=== PATIENT | female | born 2000 | race Caucasian/White ===

== ENCOUNTER 2022-03-05 16:47 | Emergency (ER) | payer OTHER ==
[2022-03-05] MEDS ORDERED: ONDANSETRON 4 MG/2 ML VIAL ONE (17:21)
[2022-03-05] MEDS ORDERED: FAMOTIDINE 20 MG/2 ML VIAL IV ONE (17:21)
[2022-03-05] MEDS ORDERED: DICYCLOMINE HCL 20 MG/2 ML AMP IM ONE (17:21)
[2022-03-05] MEDS ORDERED: NA CHLORIDE 0.9% 1,000 ML ONE (17:21)
[2022-03-05 17:29] LABS: Urine Blood Negative (Negative); Urine Glucose Negative (Negative); Urine Protein 2+ (Negative); Urine Specific Gravity >=1.030 (1.005-1.030)
[2022-03-05 17:44] LABS: Absolute Lymphocytes (CBC) 1.9 K/uL (0.7-4.9); Hematocrit 34.9 % (36.0-45.0); Lymphocytes % 19.1 % (15.3-44.8); MCV 78.1 fL (80-100); MPV 9.5 fL (7.6-11.3); RBC Red Blood Cell Count 4.47 M/uL (3.86-4.86)
[2022-03-05 17:48] LABS: Urine Bacteria <20 /HPF (<20); Urine Mucus Slight /HPF (None Seen)
[2022-03-05 17:55] LABS: Albumin 3.8 g/dL (3.4-5.0); Bilirubin Total 0.6 mg/dL (0.2-1.0); Potassium 3.4 mmol/L (3.5-5.1); Protein, Total 7.8 g/dL (6.4-8.2)
--- NOTE | 2022-03-05 19:11 | RAD REPORT ---
EXAM DESCRIPTION: US - Abdomen Exam Limited - 03/05/2022 6:53 pm CLINICAL HISTORY: Abdominal pain. COMPARISON: None. FINDINGS: The gallbladder wall is not thickened. Multiple gallstones The biliary tree is normal caliber. IMPRESSION: Cholelithiasis without evidence of cholecystitis
--- NOTE | 2022-03-05 19:45 | ER ---
Nurse's Notes [facility] Name: Blanca Red Age: 21 yrs Sex: Female : 2000 Arrival Date: 03/05/2022 Time: 16:48 Bed 26 Private MD: Diagnosis: Other cholelithiasis without obstruction Presentation: 03/05 17:02 Chief complaint: Patient states: upper abd pain started about 30 minutes ago, has had iw episodes of abd pain since given on Jan 24, pt gave at 6 months along, baby did not survive , denies n/v/d denies vaginal bleeding , also feels like she can't get a good breath in due to the pain. Coronavirus screen: Client presents with at least one sign or symptom that may indicate coronavirus-19. Ebola Screen: Patient negative for fever greater than or equal to 101.5 degrees Fahrenheit, and additional compatible Ebola Virus Disease symptoms Patient denies exposure to infectious person. Patient denies travel to an Ebola-affected area in the 21 days before illness onset. No symptoms or risks identified at this time. Initial Sepsis Screen: Does the patient meet any 2 criteria? No. Patient's initial sepsis screen is negative. Does the patient have a suspected source of infection? No. Patient's initial sepsis screen is negative. Risk Assessment: Do you want to hurt yourself or someone else? Patient reports no desire to harm self or others. Onset of symptoms was March 05, 2022. 17:02 Method Of Arrival: Ambulatory iw 17:02 Acuity: MARY 3 iw Historical: - Allergies: 17:05 No Known Allergies; iw - Home Meds: 17:05 None [Active]; iw - PMHx: 17:05 None; iw - PSHx: 17:05 None; iw - Immunization history:: Adult Immunizations up to date, Client reports having NOT received the Covid vaccine. - Social history:: Smoking status: Patient denies any tobacco usage or history of. Screenin:35 Abuse screen: Denies threats or abuse. Nutritional screening: No deficits noted. bm7 Tuberculosis screening: No symptoms or risk factors identified. Fall Risk None identified. Assessment: 17:35 Reassessment: Patient and/or family updated on plan of care and expected duration. Pain bm7 level reassessed. Patient is alert, oriented x 3, equal unlabored respirations, skin warm/dry/pink. General: Appears in no apparent distress. uncomfortable, Behavior is calm, cooperative. Pain: Complains of pain in abdomen. Neuro: No deficits noted. Cardiovascular: No deficits noted. Respiratory: No deficits noted. GI: Bowel sounds present X 4 quads. Abd is soft X 4 quads Abdomen is tender to palpation in right lower quadrant and left lower quadrant. : No deficits noted. No signs and/or symptoms were reported regarding the genitourinary system. Denies vaginal bleeding. EENT: No deficits noted. No signs and/or symptoms were reported regarding the EENT system. Derm: No deficits noted. No signs and/or symptoms reported regarding the dermatologic system. Musculoskeletal: No deficits noted. No signs and/or symptoms reported regarding the musculoskeletal system. 18:26 Reassessment: Patient and/or family updated on plan of care and expected duration. Pain bm7 level reassessed. Patient is alert, oriented x 3, equal unlabored respirations, skin warm/dry/pink. Ultrasound at bedside. 19:03 Reassessment: Patient and/or family updated on plan of care and expected duration. Pain bm7 level reassessed. Patient is alert, oriented x 3, equal unlabored respirations, skin warm/dry/pink. Vital Signs: 17:02 BP 120 / 88; Pulse 101; Resp 18; Temp 98.4; Pulse Ox 99% on R/A; Weight 100.24 kg; iw Height 5 ft. 3 in. (160.02 cm); Pain 7/10; 18:26 BP 124 / 80; Pulse 80; Resp 16; Temp 98.9(TE); Pulse Ox 100% ; bm7 17:02 Body Mass Index 39.15 (100.24 kg, 160.02 cm) iw ED Course: 16:48 Patient arrived in ED. am2 16:49 Asaf Patrick PA is PHCP. cp 16:49 Asaf Jewell MD is Attending Physician. cp 17:05 Randi Espinoza, RN is Primary Nurse. bm7 17:05 Triage completed. iw 17:05 Arm band placed on. iw 17:35 No apparent distress. Resting quietly. Awaiting lab results. bm7 17:35 Patient has correct armband on for positive identification. Placed in gown. Bed in low bm7 position. Call light in reach. Client placed on continuous cardiac and pulse oximetry monitoring. NIBP monitoring applied. Warm blanket given. 17:35 No provider procedures requiring assistance completed. Initial lab(s) drawn, by me, bm7 sent to lab. Urine collected: clean catch specimen, clear. Inserted saline lock: 20 gauge in right antecubital area, using aseptic technique. Blood collected. Patient maintains SpO2 saturation greater than 95% on room air. 18:55 Abdomen Limited US: epigastric/RUQ pain In Process Unspecified. EDMS 19:45 Sanjeev Burdick MD is Referral Physician. cp 19:58 IV discontinued, intact, bleeding controlled, No redness/swelling at site. Pressure bm7 dressing applied. Administered Medications: 17:34 Drug: Pepcid (famotidine) 20 mg Route: IVP; Site: right antecubital; bm7 18:30 Follow up: Response: No adverse reaction bm7 17:34 Drug: Zofran (Ondansetron) 4 mg Route: IVP; Site: right antecubital; bm7 18:30 Follow up: Response: Nausea is decreased bm7 17:34 Drug: Bentyl (dicyclomine) 20 mg Route: IM; Site: right gluteus; bm7 18:29 Follow up: Response: No adverse reaction bm7 17:34 Drug: NS 0.9% 1000 ml Route: IV; Rate: 1 bolus; Site: right antecubital; bm7 19:58 Drug: Potassium Effervescent Tablet 25 mEq Route: PO; bm7 19:58 Follow up: Response: No adverse reaction bm7 Medication: 17:35 VIS not applicable for this client. bm7 Point of Care Testing: Urine : 17:35 hCG Reading: Negative; Control Reading: Positive; bm7 Outcome: 19:45 Discharge ordered by . cp 19:58 Discharged to home via ambulance, with family. bm7 19:58 Condition: good 19:58 Discharge instructions given to patient, family, Instructed on discharge instructions, follow up and referral plans. medication usage, Demonstrated understanding of instructions, follow-up care, medications, Prescriptions given X 3. 19:59 Patient left the ED. bm7 Signatures: Dispatcher [employer] EDMS Bree Pfeiffer RN RN iw Asaf Patrick PA PA cp Moreno, Amanda am2 Randi Espinoza, RN RN bm7
--- NOTE | 2022-03-05 19:45 | EDPHYS ---
Physician Documentation [facility] Name: Blanca Red Age: 21 yrs Sex: Female : 2000 Arrival Date: 03/05/2022 Time: 16:48 Bed 26 Private MD: ASMITA Physician Asaf Jewell HPI: 03/05 17:10 This 21 yrs old Female presents to ER via Ambulatory with complaints of Abdominal Pain cp - severe. 17:10 The patient presents with abdominal pain in the epigastric area. Onset: The cp symptoms/episode began/occurred suddenly, today. The symptoms do not radiate. Associated signs and symptoms: Pertinent positives: nausea, Pertinent negatives: chest pain, constipation, dysuria, fever, shortness of breath, vomiting. The symptoms are described as constant. Modifying factors: the symptoms are aggravated by breathing deeply. Severity of pain: in the emergency department the pain is unchanged despite home interventions. Historical: - Allergies: 17:05 No Known Allergies; iw - Home Meds: 17:05 None [Active]; iw - PMHx: 17:05 None; iw - PSHx: 17:05 None; iw - Immunization history:: Adult Immunizations up to date, Client reports having NOT received the Covid vaccine. - Social history:: Smoking status: Patient denies any tobacco usage or history of. ROS: 17:15 Constitutional: Negative for body aches, chills, fever, poor PO intake. cp 17:15 Eyes: Negative for injury, pain, redness, and discharge. cp 17:15 ENT: Negative for drainage from ear(s), ear pain, sore throat, difficulty swallowing, difficulty handling secretions. 17:15 Cardiovascular: Negative for chest pain, edema, palpitations. 17:15 Respiratory: Negative for cough, shortness of breath, wheezing. 17:15 Abdomen/GI: Positive for abdominal pain, nausea, of the epigastric area, Negative for vomiting, diarrhea, constipation. 17:15 Back: Negative for radiated pain. 17:15 : Negative for urinary symptoms. 17:15 Neuro: Negative for altered mental status, headache, weakness. 17:15 All other systems are negative. Exam: 17:20 Constitutional: The patient appears in no acute distress, alert, awake, non-toxic, well cp developed, well nourished, obese. 17:20 Head/Face: Normocephalic, atraumatic. cp 17:20 Eyes: Periorbital structures: appear normal, Conjunctiva: normal, no exudate, no injection, Sclera: no appreciated abnormality, Lids and lashes: appear normal, bilaterally. 17:20 ENT: External ear(s): are unremarkable, Nose: is normal, Mouth: Lips: moist, Oral mucosa: pink and intact, moist, Posterior pharynx: Airway: no evidence of obstruction, patent. 17:20 Chest/axilla: Inspection: normal. 17:20 Cardiovascular: Rate: normal, Rhythm: regular. 17:20 Respiratory: the patient does not display signs of respiratory distress, Respirations: normal, no use of accessory muscles, no retractions, labored breathing, is not present, Breath sounds: are clear throughout, no decreased breath sounds, no stridor, no wheezing. 17:20 Abdomen/GI: Inspection: abdomen appears normal, Bowel sounds: active, all quadrants, Palpation: soft, in all quadrants, moderate abdominal tenderness, in the epigastric area, rebound tenderness, is not appreciated, involuntary guarding, is not appreciated. 17:20 Back: CVA tenderness, is absent. 17:20 Neuro: Orientation: to person, place \T\ time. Mentation: is normal. Vital Signs: 17:02 BP 120 / 88; Pulse 101; Resp 18; Temp 98.4; Pulse Ox 99% on R/A; Weight 100.24 kg; iw Height 5 ft. 3 in. (160.02 cm); Pain 7/10; 18:26 BP 124 / 80; Pulse 80; Resp 16; Temp 98.9(TE); Pulse Ox 100% ; bm7 17:02 Body Mass Index 39.15 (100.24 kg, 160.02 cm) iw MDM: 16:56 Patient medically screened. jose 17:30 Differential diagnosis: cholecystitis, Cholelithiasis, gastritis, non-specific abd cp pain, pancreatitis, Peptic Ulcer Disease, Perf. Duodenal Ulcer, Perf. Gastric Ulcer, urinary tract infection. 19:43 Data reviewed: vital signs, nurses notes, lab test result(s), radiologic studies, cp ultrasound. Counseling: I had a detailed discussion with the patient and/or guardian regarding: the historical points, exam findings, and any diagnostic results supporting the discharge/admit diagnosis, lab results, radiology results, to return to the emergency department if symptoms worsen or persist or if there are any questions or concerns that arise at home. ED course: Patient reports pain resolved at this time. Will discharge to home for continued monitoring. 03/05 17:07 Order name: CBC with Diff; Complete Time: 17:57 cp / 17:57 Interpretation: Normal except: HGB 11.7; HCT 34.9; MCV 78.1; MCH 26.3; AURORA% 74.0. / 17:07 Order name: CMP; Complete Time: 17:57 cp /12 17:58 Interpretation: Abnormal: K 3.4; AST 140; ALT 150; GLOB 4.0; A/G 1.0. / 17:07 Order name: Lipase; Complete Time: 17:57 cp 09/12 17:58 Interpretation: Within normal limits: LIP 152. / 17:07 Order name: Urine Microscopic Only; Complete Time: 17:57 cp / 17:57 Interpretation: Normal except: URBC 5-10. / 17:30 Order name: Urine Dipstick-Ancillary; Complete Time: 17:57 EDMS 09/ 17:57 Interpretation: Normal except: UPROT 2+. / 17:07 Order name: Abdomen Limited US: epigastric/RUQ pain; Complete Time: 19:40 09/12 19:40 Interpretation: Report reviewed. / 17:07 Order name: IV Saline Lock; Complete Time: 17:09 cp 03/05 17:07 Order name: Labs collected and sent; Complete Time: 17:09 cp 03/05 17:07 Order name: Urine Dipstick-Ancillary (obtain specimen); Complete Time: 17:34 cp /12 17:07 Order name: Urine Test (obtain specimen); Complete Time: 17:34 cp / 17:07 Order name: NPO; Complete Time: 17:09 cp Administered Medications: 17:34 Drug: Pepcid (famotidine) 20 mg Route: IVP; Site: right antecubital; bm7 18:30 Follow up: Response: No adverse reaction bm7 17:34 Drug: Zofran (Ondansetron) 4 mg Route: IVP; Site: right antecubital; bm7 18:30 Follow up: Response: Nausea is decreased bm7 17:34 Drug: Bentyl (dicyclomine) 20 mg Route: IM; Site: right gluteus; bm7 18:29 Follow up: Response: No adverse reaction bm7 17:34 Drug: NS 0.9% 1000 ml Route: IV; Rate: 1 bolus; Site: right antecubital; bm7 19:58 Drug: Potassium Effervescent Tablet 25 mEq Route: PO; bm7 19:58 Follow up: Response: No adverse reaction bm7 Point of Care Testing: Urine : 17:35 hCG Reading: Negative; Control Reading: Positive; bm7 Disposition Summary: 03/05/22 19:45 Discharge Ordered Location: Home cp Problem: new cp Symptoms: have improved cp Condition: Stable cp Diagnosis - Other cholelithiasis without obstruction cp Followup: cp - With: Sanjeev Burdick MD - When: 2 - 3 days - Reason: Recheck today's complaints Discharge Instructions: - Discharge Summary Sheet cp - Cholelithiasis cp Forms: - Medication Reconciliation Form cp - Thank You Letter cp - Antibiotic Education cp - Prescription Opioid Use cp Prescriptions: - Zofran 4 mg Oral Tablet - take 1 tablet by ORAL route every 12 hours As needed; 20 tablet; Refills: 0, cp Product Selection Permitted - dicyclomine 20 mg Oral Tablet - take 1 tablet by ORAL route 4 times per day; 30 tablet; Refills: 0, Product cp Selection Permitted - Pepcid 20 mg Oral Tablet - take 1 tablet by ORAL route every 12 hours for 10 days; 20 tablet; Refills: 0, cp Product Selection Permitted Signatures: Dispatcher [employer] EDAsaf Mon MD MD cha Williams, Irene, RN RN iw Page, Corey, PA PA cp Randi Espinoza, NAVID RN bm7 Corrections: (The following items were deleted from the chart) 17:58 17:57 Abnormal: K 3.4. cp cp
[2022-03-05] MEDS ORDERED: POTASSIUM 25 MEQ EFFERV TAB ONE (20:01)
[2022-03-05 21:51] VITALS: BP 124/80; TEMP 98.9; O2SAT 100
== END 2022-03-05 19:59 | disposition home or self-care (01) ==
LOC: ER 16:47
DX: K80.80 Other cholelithiasis without obstruction (principal)
CPT/HCPCS: 85025; 36415; 83690; 80053; 76705; 96375; 96372; 96374; 99284; J0500; J7030; J2405; 81003; 81015

== ENCOUNTER 2022-03-14 17:52 | Emergency (ER) | payer OTHER ==
--- OUTSIDE RECORDS SUMMARY | 2022-03-14 17:55 | XMS REPORT | Continuity of Care Document ---
:2000 Author Organization [facility] t Address [address] [place] [address] Care Team Providers Name Role Phone PCP, PATIENT DOES NOT HAVE A Primary Care Physician Unavaila RAMONE Greco Attending Clinician Unavailable Ramone Bueno MD Attending Clinician Shekhar Portillo Attending Clinician Unavailable RAMONE BUENO Admitting Clinician Unavailable Shekhar Portillo Admitting Clinician Unavailable Payers Payer Name Policy Type Policy Number Effective Date Expiration Date Shima whitney [facility] [id number] 2022 00:00:00 Problems Condition Condition Condition Status Onset Resolution Last Treating Co mments Source Name Details Category Date Date Treatment Clinician Date Calculus Calculus Disease Active Overview: Un nura of of 03-14 Formattin ity of madhavi hendrickson 00:00: g of this [place] r without r without 00 note Medi kaveh cholecysti cholecysti might be Branch tis tis different without without from the obstructio obstructio original. n n Added automatic ally from request for surgery [id number] Allergies, Adverse Reactions, Alerts Allergy Allergy Status Severity Reaction(s) Onset Inactive Treating Comm ents Source Name Type Date Date Clinician No Known DA Active U [facility] 01-24 Allergie 00:00: s 00 No Known DA Active U [facility] 01-23 Allergie 00:00: s 00 NO KNOWN Drug Active Univers ALLERGIE Class ity of S [facility] Social History Social Habit Start Date Stop Date Quantity Comments Source Alcohol intake 2022-03-14 2022-03-14 Lifetime University of 00:00:00 00:00:00 non-drinker [facility] (finding) Branch Exposure to 2022-03-02 2022-03-12 Not sure University SARS-CoV-2 00:00:00 08:32:00 [facility] (event) Branch Tobacco use and 2022-03-12 2022-03-12 Smokeless tobacco Un iversity of exposure 00:00:00 00:00:[address] [facility] Sex Assigned At [birth year] Universit y of 00:00:00 00:00:00 [facility] Smoking Status Start Date Stop Date Source Never smoked tobacco [facility] Medications Ordered Filled Start Stop Current Ordering Indication Dosage Frequency Signature Comments Components Source Medication Medication Date Date Medication? Clinician (SIG) Name Name famotidine 0 Yes 20mg Take 20 mg U nivers 20 mg 9-19 by mouth 2 ity of tablet 08:40: (two) [place] 15 times Medical daily as Branch needed. dicyclomine 2021-0 Yes 20mg Take 20 mg Univers 20 mg 9-19 by mouth 4 ity of tablet 08:40: (four) [place] 15 times Medical daily. Branch famotidine 2021-0 Yes 20mg Take 20 mg U nivers 20 mg 9-19 by mouth 2 ity of tablet 08:40: (two) [place] 15 times Medical daily as Branch needed. dicyclomine 2-0 Yes 20mg Take 20 mg Univers 20 mg 9-19 by mouth 4 ity of tablet 08:40: (four) [place] 15 times Medical daily. Branch DICYCLOMINE 2021-0 No HYDROCHLORI 9-13 DE 20 MG 00:00: TABS 00 TAKE 1 2021-0 No TABLET BY 9-13 MOUTH EVERY 00:00: 12 HOURS 00 FOR 10 DAYS FUENTES PAGE Vital Signs Vital Name Observation Time Observation Value Comments Source Systolic blood 2022-03-12 13:36:00 118 mm[Hg] Univer sity of pressure [facility] Diastolic blood 2022-03-12 13:36:00 77 mm[Hg] Unive rsity of pressure [facility] Heart rate 2022-03-12 13:36:00 98 /min [facility] Body temperature 2022-03-12 13:36:00 37.11 Val [facility] Respiratory rate 2022-03-12 13:36:00 18 /min [facility] Body height 2022-03-12 13:36:00 160 cm [facility] Body weight 2022-03-12 13:36:00 102.513 kg [facility] BMI 2022-03-12 13:36:00 40.03 kg/m2 [facility] Heart Rate 2022-03-06 17:08:00 96.00 /min Respiratory Rate 2022-03-06 17:08:00 21.00 /min BP Systolic 2022-03-06 17:08:00 111 mm[Hg] BP Diastolic 2022-03-06 17:08:00 65 mm[Hg] Weight Measured 2022-03-06 17:08:00 225.80 pounds Height Measured 2022-03-06 17:08:00 63.00 inches Body Temperature 2022-03-06 17:08:00 97.70 degrees Procedures This patient has no known procedures. Plan of Care Planned Activity Planned Date Details Comments Source Goal Plan of Care Note [code = 21501-8] Goal Plan of Care Note [code = 01442-8] Goal Plan of Care Note [code = 86971-9] Goal Plan of Care Note [code = 87834-2] Goal Plan of Care Note [code = 69278-3] Encounters Start End Encounter Admission Attending Care Care Encounter Source Date/Time Date/Time Type Type Clinicians Facility Department ID 2022-03-20 2022-03-20 Outpatient Ector BUENO [facility] JORDYN [id number] Univers 07:00:00 07:00:00 RAMONE [facility] 2022-03-17 2022-03-17 Outpatient [facility] [id number] Univers 08:30:00 08:30:00 [id number] [facility] 2022-03-12 2022-03-12 Outpatient Ector BUENO [facility] [id number] Univers 08:30:00 09:25:15 [facility] 2022-03-12 2022-03-12 Office [facility] [id number] [facility] [place] [place] 08:30:00 09:25:15 Visit [facility] [id number] [facility] [id number] Koko caceres [id number] [place] [address] Branch 2022-03-06 2022-03-06 Outpatient [id number] 00:00:00 00:00:00 Visit [id number] 2022-01-24 2022-01-25 Inpatient Urgent [facility] [id number] [facility] 02:34:00 13:30:00 [facility] 61 2022-01-24 2022-01-24 Inpatient Emergency Lindsey [facility] [id number] [facility] 02:34:00 01:41:00 [facility] 61 2022-01-23 2022-01-23 Outpatient Emergency BUBBA [facility] [id number] [facility] 06:45:00 09:19:00 [facility] 67 2022-01-23 2022-01-23 Outpatient [facility] [id number] [facility] 07:06:00 07:06:00 67 Results Test Description Test Time Test Comments Results Result Comments Source Thyroid Stimulating Hormone 2022-01-24 23:00:00 Test Item Value Reference Range Interpretation Comme nts Thyroid Stimulating Hormone (test code = TSH) 1.900 IU/mL 0.358-3. 74 N Comprehensive Metabolic [id number] 23:00:00 Test Item Value Reference Range Interpretation Comments SODIUM (test code = NA) 136 mmol/L 136-145 N Potassium,K (test code = K) 3.8 mmol/L 3.5-5.1 N Chloride (test code = CL) 106 mmol/L 98-107 N Carbon Dioxide (test code = 23 mmol/L 21-32 N CO2) Anion Gap (test code = GAP) 7 mmol/L 7-16 N Blood Urea Nitrogen (test code 7 mg/dL 7-18 N = BUN) Creatinine (test code = CREATT) 0.5 mg/dL 0.6-1.0 L Creatinine Clr Calc Pharmacy 203.36 mL/min (test code = CRCLPHA) Estimated GFR ( [place] > 60 mL/min/1.73m2 (test code = EGFRAA) Estimated GFR (Non Afr [place] > 60 mL/min/1.73m2 (test code = EGFRNAA) BUN/Creatinine Ratio (test code 14 = BCRATIO) Glucose (test code = GLU) 104 mg/dL 74-106 N Calcium (test code = CA) 8.8 mg/dL 8.5-10.1 N Bilirubin,Total (test code = 0.3 mg/dL 0.2-1.0 N BILIT) Aspartate Amino Transferase 8 IU/L 15-37 L (test code = AST) Alanine Aminotransferase (test 13 IU/L 12-78 N code = ALT) Total Protein (test code = TP) 6.0 g/dL 6.4-8.2 L Albumin Level (test code = ALB) 2.7 g/dL 3.4-5.0 L Globulin (test code = GLOB) 3 Albumin/Globulin Ratio (test 0.9 ratio 1.2-3.0 L code = AGRATIO) Alkaline Phosphatase (test code 58 IU/L 50-136 N = ALP) Thyroid Stimulating [id number] 23:00:00 Test Item Value Reference Range Interpretation Comments Thyroid Stimulating Hormone (test 1.860 IU/mL 0.358-3.74 N code = TSH) Hemoglobin [id number] 23:00:00 Test Item Value Reference Range Interpretation Comments Hemoglobin A1C (test code = HGBA1C.XX) 4.5 % 2.0-7.0 N LUPUS [id number] 23:00:00 Test Item Value Reference Range Interpretation Comments CLINICAL DERMATOLOGIST Antibodies (test 0.8 AI 0.0-0.9 code = LUPPRO.1) Tobias Antibodies (test <0.2 AI 0.0-0.9 code = LUPPRO.2) Anti-DNA (DS) Ab Qn 1 IU/mL 0-9 Negativ e <5 Equivocal (test code = LUPPRO.3) 5 - 9 Positive >9 LEONORA Direct (test code = Negative Negative Perf ormed at: [facility] - LUPPRO.4) [address] [id number] Di eliezer: Sumeet Murrell MD, Phone: [phone] Antithrombin [id number] 23:00:00 Test Item Value Reference Range Interpretation Comments Antithrombin 109 % 75-135 Direct Xa inhib itor Activity (test code anticoag ulants such as = AT3FUN.L) rivaroxaban,api xaban and edoxaban will l ead to spuriously elevatedantithr ombin activity levels possibly masking a deficiency.Perf ormed at: [facility] [id number], [place], [place] [id number] Director: Ruiz Zhang MD, Phone: [phone] CMV Abs IgG/[id number] 23:00:00 Test Item Value Reference Range Interpretation Comments Cytomegalovirus (CMV) <0.60 U/mL 0.00-0.59 Negat anita <0.60 Ab, IgG (test code = Equivoc al 0.60 - CMVABGM.1) 0.69 Positive > 0.69 Cytomegalovirus (CMV) <30.0 AU/mL 0.0-29.9 Negat anita <30.0 Ab, IgM (test code = Equivoc al 30.0 - CMVABGM.2) 34.9 Positive >34.9A positive result is gener ally indicative of acuteinfection, reactivation or persistent IgM production.Perf erlinda d at: [facility] [address] [id number] Director: Shayla Jara MD, Ph one: [phone] [id number] 23:00:00 Test Item Value Reference Range Interpretation Comments MTHFR, DNA TNP See_Comment Test not perfor med. No whole Analysis (test blood receive d.Notified Shadia code = MTHFR.1) Ilir at noejgnj44/07/20 22Additional Clinical Information:Hyp erhomocysteinemia is multifactori al involving genetic,clinica l, and environmental r isk factors. Reduced enzymea ctivity of methylenetetrah ydrofolate reductase (MTHF R) daly genetic risk factor for hyperhomocystei nemia,particularly when serum raoul te levels are low. There aretwo co mmon variants in the MTHFR gene that can decreaseenzyme activity; c.665C>T (p. Nuk386Tel), legacy ixcbB842H, and c.1286A>C ( p. Sth870Tyh), legacy name A12 98C.These variants do not independ ently increase risk ofconditio ns related to hyperhomocystei nemia in the absenceof eleva steven homocysteine levels. Measure ment of totalplasma donis ocysteine is recommended. Pa tients should sharetheir MTHF R genotype with physicians who are makingdecisions regarding chemotherapy tr eatments that depend onfolate , such as methotrexate.Gu idelines do not recommend genot yping of these two MTHFRvariants i n the evaluation of venous throm bosis orobstetric risk due to robertson ited evidence of clinical utilit y(PMID: 18912200). Comments:Geneti c Coordinators are available for [facility] careproviders t o discuss results at [phone] ID [phone]).Test Details:Variant s Analyzed: c.665C>T (p. Al t804Oxf), legacy name:C677T and c.1286A>C (p. Miz100Hxr), leg acy name: [id number]/L imitations:DNA analysis of the MTHFR gene was performed by PC Ramplification followed by res triction enzyme analysis. Thedi agnostic sensitivity is >99%. Results must be combinedwith clinical information for the most accurateinterpr etation. Molecular-based testing is highlyaccurate, but as in any laboratory test , diagnosticerrors may occur. Fals e positive or false negative resultsmay occur for reasons cristal t include genetic variants, blood transfusions, bone marrow transpla ntation, somatic ortissue-specif ic mosaicism, mislabeled samp les, or erroneousrepres entation of family relationships.T his test was developed and i ts performancechar acteristics determined by [facility] Parham. It has not beencleared or approved by the Food and Drug Administration. References:Glo SE, Nura AQUINO, T nathanael ZAVALETA. [facility] PracticeGuideli ne: lack of evidence for MT HFR polymorphism testing.Ary M ed. 2012;15(2):153-6 . doi: 10.1038/gim.201 2.165.Ep2012Jun 26. PMID: 23 217190.[employer]'C ommittee on Practice Bullet ins-Obstetrics. [facility] VickieBu kim No. 197: Inherited Throm bophilias in .Obste t Gynecol. 2018 Dec;132(1):e18- e34. doi:10.1097/AOG .[id number]. Erratum in: Obs tet Gynecol.2018 Mar;132(4):1069 . PMID: 35120120.Gricelda Buckley, PhD, Isabel almazan, PhDJosejaycee Uribe, PhD, F Shelby Perkins, PhD, Rasheeda Youssef, PhD, FACW Ammy Schultz, PhD, Kareem layne, PhD, Chago mahoney, PhD, [facility] [Automated mess age] The system which generated this result transmitted ref erence range: .. The reference r rina was not used to interpret th is result as normal/abnormal . Factor V [id number] 23:00:00 Test Item Value Reference Range Interpretation Comments Factor V Leiden TNP See_Comment no whole blo od rec'vd and Result (test code = patient dischargedTest not FVLEID.1) performed. No w hole blood received.Notifi ed Shadia Cordonoval at /07/20 22 [Automated message] The sy stem which generated this result transmitted ref erence range: .. The referenc e range was not used to int erpret this result as jairo l/abnormal. Interpretation: TNP See_Comment no whole blo od rec'vd and (test code = patient dischar ged FVLEID.2) [Automated mess age] The system which ge nerated this result transmit steven reference range: .. The r eference range was not u sed to interpret this result as normal/abnormal . Methodology: (test TNP See_Comment no whole blood rec'vd and code = FVLEID.3) patient dis charged [Automated mess age] The system which ge nerated this result transmit steven reference range: .. The r eference range was not u sed to interpret this result as normal/abnormal . Comments: (test code TNP See_Comment no whol e blood rec'vd and = FVLEID.4) patient dischar ged [Automated mess age] The system which ge nerated this result transmit steven reference range: .. The r eference range was not u sed to interpret this result as normal/abnormal . Parvovirus B19, Human, IgG/[id number] 23:00:00 Test Item Value Reference Range Interpretation Comments Parvovirus B19, IgG 5.9 index 0.0-0.8 A Negativ e <0.9 (test code = Equivocal 0.9 - 1.1 WMWH71ZW.1) Positive >1.1 Parvovirus B19, IgM 0.2 index 0.0-0.8 Negativ e <0.9 (test code = Equivocal 0.9 - 1.1 RZEX33DN.2) Positive >1.1Pe rformed at: [facility] [address] [id number] Di eliezer: Kanchan Jara MD, Phone: [phone] Toxoplasma Abs [id number] 23:00:00 Test Item Value Reference Range Interpretation Comments Toxoplasma gondii <3.0 IU/mL 0.0-7.1 Negative <7.2 Ab,IgG,Qn (test code Equivoc al 7.2 - 8.7 = TOXGM.1) Positive >8.7 Toxoplasma gondii <3.0 AU/mL 0.0-7.9 Negative <8.0 Ab,IgM,Qn (test code Equivoc al 8.0 - 9.9 = TOXGM.2) Positive >9.9 Comments (test code = Comment See_Comment No ser ological TOXGM.3) evidence of inf ection with Toxoplasma . Ifsymptoms pers ist, submit a new sp ecimen after three weeks.Performed at: [facility] [employer] [id number] Di eliezer: Kanchan Jara MD, Phone: [phone] [Automated mess age] The system [employer] generated this result transmitted ref erence range: .. The reference range was not used to int erpret this result as normal/abnormal . Antiphospholipid [id number] 23:00:00 Test Item Value Reference Interpretation Comments Range Specimen Status Comment See_Comment Reference la b report sent (test code = via fax. [Autom ated ANTIPHOSAB.1) message] The s ystem which generated this result transmitted ref erence range: .. The r eference range was not u sed to interpret this result as normal/abnormal . Cardiolipin IgM Negative See_Comment [Automated message] The (test code = system which ge nerated ANTIPHOSAB.2) this result tr ansmitted reference range : .. The reference range was not used to interpr et this result as jairo l/abnormal. Phosphatidyl Negative See_Comment [Automated mes eugenia] The Inositol IgM (test system [facility] generated code = ANTIPHOSAB.3) this re sult transmitted reference range : .. The reference range was not used to interpr et this result as jairo l/abnormal. Phosphatidyl Negative See_Comment [Automated mes eugenia] The Glycerol IgM (test system [facility] generated code = ANTIPHOSAB.4) this re sult transmitted reference range : .. The reference range was not used to interpr et this result as jairo l/abnormal. Phosphatidyl Serine Negative See_Comment [Automa steven message] The IgM (test code = system [facility] generated ANTIPHOSAB.5) this result tr ansmitted reference range : .. The reference range was not used to interpr et this result as jairo l/abnormal. Cardiolipin IgG Negative See_Comment [Automated message] The (test code = system which ge nerated ANTIPHOSAB.6) this result tr ansmitted reference range : .. The reference range was not used to interpr et this result as jairo l/abnormal. Phosphatidyl Negative See_Comment [Automated mes eugenia] The Inositol IgG (test system [facility] generated code = ANTIPHOSAB.7) this re sult transmitted reference range : .. The reference range was not used to interpr et this result as jairo l/abnormal. Phosphatidyl Negative See_Comment [Automated mes eugenia] The Glycerol IgG (test system [facility] generated code = ANTIPHOSAB.8) this re sult transmitted reference range : .. The reference range was not used to interpr et this result as jairo l/abnormal. Phosphatidyl Serine Negative See_Comment [Automa steven message] The IgG (test code = system [facility] generated ANTIPHOSAB.9) this result tr ansmitted reference range : .. The reference range was not used to interpr et this result as jairo l/abnormal. Cardiolipin IgA Negative See_Comment [Automated message] The (test code = system which ge nerated ANTIPHOSAB.10) this result t ransmitted reference range : .. The reference range was not used to interpr et this result as jairo l/abnormal. Phosphatidyl Negative See_Comment [Automated [facility]] The Inositol IgA (test system [facility] generated code = this result tra nsmitted ANTIPHOSAB.11) reference ran ge: .. The reference range was not used to interpr et this result as jairo l/abnormal. Phosphatidyl Negative See_Comment [Automated [facility] e[facility]] The Glycerol IgA (test system [facility] generated code = this result tra nsmitted ANTIPHOSAB.12) reference ran ge: .. The reference range was not used to interpr et this result as jairo l/abnormal. Phosphatidyl Serine Negative See_Comment [Automa steven message] The IgA (test code = system [facility] generated ANTIPHOSAB.13) this result t ransmitted reference range : .. The reference range was not used to interpr et this result as jairo l/abnormal. Interpretation (test Comment See_Comment Results for CL are code = reported as perry spholipid ANTIPHOSAB.14) units based o TNeliezer' Antiphospholipi d antibody standards: GPL for IgGphospholipid units, MPL for IgM phospho lipid units, APL forI gA phospholipid un its. Results for PI, PG, and PS are basedon nor malized population data standardized to equivalentphosp holipid units (Approxim ately 3 multiples of th e medianor 4 standard deviations).--- ----- GPL MPL APL Result Interpretation- ------- <=10 <=10 <=15 Negative No evidence for antiphospholipi d antibodies >10- <=20 10-<25 15-<=28 Borderl ine Not associated wit h poor outco me or manifestations. >20-=<80 >=25-<80 >28-<= 80 Positive Can be associat ed with recurrent pregn kaleigh loss, lupus, and thr ombosis. >80 >80 >80 Hig h Stronger association Pos itive with thromboembolic events / autoimmune disease.------- - [Automated mess age] The system which ge nerated this result tra nsmitted reference range : .. The reference range was not used to interpr et this result as jairo l/abnormal. Comments (test code See below. See_Comment No antip hospholipid = ANTIPHOSAB.15) antibodiesP erformed at: [facility], [place], [place] [id number] Di eliezer: Andres Hensley [facility], Phone: [phone] at: - [facility] [id number] [facility] [place] [id number] Director: Sumeet Murrell MD, Phone: [phone] [Automated mess age] The system which ge nerated this result tra nsmitted reference range : .. The reference range was not used to interpr et this result as jairo l/abnormal. Recommendations [facility] See_Comment [Automated message] The (test code = system which ge nerated ANTIPHOSAB.16) this result t ransmitted reference range : .. The reference range was not used to interpr et this result as jairo l/abnormal. Test Routing (test [facility] See_Comment [Automat ed message] The code = system which ge nerated ANTIPHOSAB.17) this result t ransmitted reference range : .. The reference range was not used to interpr et this result as jairo l/abnormal. Rapid Plasma [id number] 04:55:00 Test Item Value Reference Range Interpretation Comments Rapid Plasma Reagin (test code = Non-Reactive Non-React RPR) Hepatitis B Surface [id number] 04:55:00 Test Item Value Reference Range Interpretation Comments Hepatitis B Surface Antigen (test Nonreactive NonReactive code = HBSAG) Complete Blood Count Auto [id number] 01:56:00 Test Item Value Reference Range Interpretation Comments White Blood Count (test code = 16.6 x10 3/uL 4.8-10.8 H WBCT) Red Blood Count (test code = 3.93 x10 6/uL 4.20-5.50 L RBC) Hemoglobin (test code = HGBT) 11.2 g/dL 12.0-16.0 L Hematocrit (test code = HCTT) 36.6 % 35.0-47.0 N Mean Corpuscular Volume (test 93.1 fL 80.0-95.0 N code = MCV) Mean Corpuscular Hemoglobin 28.5 pg 26.0-32.0 N (test code = MCH) Mean Corpuscular HGB Conc (test 30.6 g/dL 31.0-36.0 L code = MCHC) Red Cell Distribution Width 13.8 % 11.5-14.5 N (test code = RDW) Platelet Count (test code = 185 x10 3/uL 140-440 N PLTT) Mean Platelet Volume (test code 11.9 fL 7.5-11.2 H = MPV) nRBC Abs (test code = NRBCA) 0 10>3/mcL nRBC Pct (test code = NRBCP) 0 % Manual Differential, [id number] 01:56:00 Test Item Value Reference Range Interpretation Comments Platelet Estimate (test Normal Normal code = PLTEST) Neutrophils % (Manual) 77 % (test code = NEUT%M) Band Neutrophils % Manual 1 % 0-6 N (test code = BAND%M) Lymphocytes % (Manual) 14 % (test code = LYMPH%M) Monocytes % (Manual) (test 6 % code = MONO%M) Eosinophils % (Manual) 2 % (test code = EOS%M) Neutrophils # (Manual) 12.9 2.7-7.3 H (test code = NEUT#M) Lymphocytes # (Manual) 2.3 0.8-3.5 N (test code = LYMPH#M) Monocytes # (Manual) (test 1.0 0.3-0.9 H code = MONO#M) Eosinophils # (Manual) 0.332 (test code = EOS#M) RBC Morphology (test code = Normal Morphology Normal RM) UA, Urinalysis Rflx Cult/[id number] 07:50:00 Test Item Value Reference Range Interpretation Comments Color,Urine (test code = UCOL) Yellow Yellow Clarity,Urine (test code = UCLAR) Clear Clear PH,Urine (test code = UPH.XX) 5.5 5.0-8.0 Specific [place],Urine (test code = 1.024 SGU 1.005-1.030 N USG) Blood,Urine (test code = UBLD) 2+ Negative A Protein,Urine (test code = UPRO) 2+ Negative A Glucose,Urine (UA) (test code = Negative Negative UGLU) Ketones,Urine (test code = UKET) Negative Negative Nitrate,Urine (test code = UNIT) Negative Negative Bilirubin,Urine (test code = UBIL) Negative Negative Urobilinogen,Urine (test code = 0.2 EU/dL Negative UURO) Leukocyte Esterase,Urine (test code Negative Negative = ULEU) Urine [id number] 07:50:00 Test Item Value Reference Range Interpretation Comments RBC,Urine (test code = URBC.XX) 0-4 /HPF None Seen WBC,Urine (test code = UWBC.XX) 0-2 /HPF None Seen Squamous Epithelial Cell,Urine 21-73 /LPF 0-20 A (test code = USQEPI.XX) Bacteria,Urine (test code = Negative /HPF Negative UBACT) Drug Screen,[id number] 07:50:00 Test Item Value Reference Range Interpretation Comments Urine Drug pH (test code = UDRUGPH) 5.5 5.0-8.0 N PCP Phencyclidine Screen,Urine (test Negative Negative code = PCPU) Amphetamine Screen,Urine (test code Negative Negative = AMPU) Opiate Screen,Urine (test code = Negative Negative UOPIS) Barbituates Screen,Urine (test code Negative Negative = BARBU) Benzodiazepines Screen,Urine (test Negative Negative code = UBENZS) Cocaine Screen,Urine (test code = Negative Negative UCOCS) Cannabinoid Screen,Urine (test code Negative Negative = UTHCS) [facility] [address] [facility] [address] Patient Name: Mino Ruano Medical Record#: [id number] Address: [address] City/State/Zip: [place] [address]: Shekhar Portillo MD Insurance: [facility] Medicaid /Age/Sex: 2000//F Self Pay Admit/Reg Date: 01/24/[address]: Shekhar Portillo MD Location: [address] PCP: PCP,UNKNOWN Date of Service: 01/24/22 Order (s): OB limited CPT Code: 13788 Report Number: [id number] Reason for Exam: prolapse cord Ordering physician: Shekhar Portillo INDICATION: Prolapsed umbilical cord, 24 weeks , nausea and vomiting COMPARISON: None TECHNIQUE: Limited grayscale and Doppler images of the pelvis were performed via a transabdominal approach. FINDINGS: There is an anterior placenta without evidence of placenta previa. There is severe oligohydramnios, limiting evaluation of the fetus. No cardiac activityis appreciated. The fetus is in vertex position. IMPRESSION: Severe oligohydramnios, limiting evaluation. No cardiac activity is appreciated. Anterior placenta without evidence for placenta previa. Vertex position. RL: [id number] AFC: [id number] Dictated By: Ana Bennett MD 01/24/22300 Signed By: Ana Bennett MD [id number] TD/TT: 01/24/22300 Tech: CK087 cc: ZAYNAB; PCPUNK* Shekhar Portillo MD; PCP,UNKNOWN
--- NOTE | 2022-03-14 21:56 | ER ---
Nurse's Notes [facility] Name: Blanca Red Age: 21 yrs Sex: Female : 2000 Arrival Date: 03/14/2022 Time: 17:53 Bed 28 Private MD: Diagnosis: Epigastric pain;Other cholelithiasis without obstruction Presentation: 03/14 18:07 Chief complaint: Patient states: pt reporting GB pain x 6weeks. Seen Dr at [facility] but was told that she could not have surgery for a mo or more. pt stating that pain to abd increasing. Coronavirus screen: Vaccine status: Patient reports receiving the 2nd dose of the covid vaccine. Ebola Screen: Patient negative for fever greater than or equal to 101.5 degrees Fahrenheit, and additional compatible Ebola Virus Disease symptoms Patient denies exposure to infectious person. Patient denies travel to an Ebola-affected area in the 21 days before illness onset. Initial Sepsis Screen: Does the patient meet any 2 criteria? No. Patient's initial sepsis screen is negative. Does the patient have a suspected source of infection? No. Patient's initial sepsis screen is negative. Risk Assessment: Do you want to hurt yourself or someone else? Patient reports no desire to harm self or others. Onset of symptoms was January 2022. 18:07 Method Of Arrival: Ambulatory [facility] 18:07 Acuity: MARY 3 [facility] Triage Assessment: 18:10 General: Appears uncomfortable, Behavior is calm. Pain: Complains of pain in epigastric [facility] area. GI: Abdomen is obese. Historical: - Allergies: 18:10 No Known Allergies; [facility] - Immunization history:: Adult Immunizations. - Social history:: Smoking status: Patient denies any tobacco usage or history of. Assessment: 22:02 Reassessment: pt left the ED before discharge. bb Vital Signs: 18:07 BP 131 / 83; Pulse 90; Resp 18; Temp 97.6(O); Pulse Ox 98% ; Weight 99.79 kg; Height 5 [facility] ft. 2 in. (157.48 cm); Pain 10/10; 18:07 Body Mass Index 40.24 (99.79 kg, 157.48 cm) [facility] ED Course: 17:53 Patient arrived in ED. am2 17:59 [facility] 17:59 Asaf Jewell MD is Attending Physician. cp 18:09 Triage completed. jh6 18:09 Arm band placed on right wrist. [facility] 21:54 Anibal Bennett MD is Referral Physician. cp Administered Medications: No medications were administered Outcome: 21:54 Discharge ordered by . cp 22:02 Patient left the ED. bb Signatures: Mayra Duarte RN RN bb Asaf Patrick PA PA cp Jeimy Merrill Lizet Kim RN RN 6
--- NOTE | 2022-03-14 21:56 | EDPHYS ---
Physician Documentation [facility] Name: Blanca Red Age: 21 yrs Sex: Female : 2000 Arrival Date: 03/14/2022 Time: 17:53 Bed 28 Private MD: ED Physician Asaf Jewell HPI: 03/14 19:20 This 21 yrs old Female presents to ER via Ambulatory with complaints of Abdominal Pain cp - gallbladder. 19:20 The patient presents with abdominal pain in the epigastric area. Onset: The cp symptoms/episode began/occurred 6 week(s) ago. The symptoms do not radiate. Associated signs and symptoms: Pertinent positives: nausea, Pertinent negatives: chest pain, constipation, diarrhea, fever, active vomiting. The symptoms are described as waxing/waning. Modifying factors: the symptoms are aggravated by food. Severity of pain: in the emergency department the pain is unchanged despite home interventions. Patient reports history of gallstones and was seen in this ED with similar complaints. Patient reports seeing DR Bennett in clinic. Has not been able to schedule cholecystectomy due to waiting for availability of surgeon. Historical: - Allergies: 18:10 No Known Allergies; jh6 - Immunization history:: Adult Immunizations. - Social history:: Smoking status: Patient denies any tobacco usage or history of. ROS: 19:25 Constitutional: Negative for body aches, chills, fever, poor PO intake. cp 19:25 Eyes: Negative for injury, pain, redness, and discharge. cp 19:25 ENT: Negative for drainage from ear(s), ear pain, sore throat, difficulty swallowing, difficulty handling secretions. 19:25 Cardiovascular: Negative for chest pain, edema, palpitations. 19:25 Respiratory: Negative for cough, shortness of breath, wheezing. 19:25 Abdomen/GI: Positive for abdominal pain, nausea, of the epigastric area, Negative for diarrhea, constipation, active vomiting. 19:25 Back: Negative for injury or acute deformity, decreased range of motion. 19:25 Neuro: Negative for altered mental status, dizziness, headache, weakness. 19:25 All other systems are negative. Exam: 19:30 Constitutional: The patient appears in no acute distress, alert, awake, cp non-diaphoretic, non-toxic, well developed, well nourished, overweight 19:30 Head/Face: Normocephalic, atraumatic. 19:30 Eyes: Periorbital structures: appear normal, Conjunctiva: normal, no exudate, no injection, Sclera: no appreciated abnormality, Lids and lashes: appear normal, bilaterally. 19:30 ENT: External ear(s): are unremarkable, Nose: is normal, Mouth: Lips: moist, Oral mucosa: pink and intact, moist, Posterior pharynx: Airway: no evidence of obstruction, patent. 19:30 Chest/axilla: Inspection: normal. 19:30 Cardiovascular: Rate: normal, Rhythm: regular. 19:30 Respiratory: the patient does not display signs of respiratory distress, Respirations: normal, no use of accessory muscles, no retractions, labored breathing, is not present, Breath sounds: are clear throughout, no decreased breath sounds, no stridor, no wheezing. 19:30 Abdomen/GI: Inspection: abdomen appears normal, Bowel sounds: active, all quadrants, Palpation: soft, in all quadrants, moderate abdominal tenderness, in the epigastric area, rebound tenderness, is not appreciated, involuntary guarding, is not appreciated. 19:30 Back: CVA tenderness, is absent. Vital Signs: 18:07 BP 131 / 83; Pulse 90; Resp 18; Temp 97.6(O); Pulse Ox 98% ; Weight 99.79 kg; Height 5 jh6 ft. 2 in. (157.48 cm); Pain 10/10; 18:07 Body Mass Index 40.24 (99.79 kg, 157.48 cm) jh6 MDM: 18:54 [facility] 19[facility]30 Differential diagnosis: cholecystitis, pancreatitis, Peptic Ulcer Disease, Perf. cp Duodenal Ulcer, Perf. Gastric Ulcer, Ureterolithiasis, urinary tract infection. 21:54 Data reviewed: vital signs, nurses notes. 21:54 ED course: VSS. Patient left ED prior to any testing. Will discharge to home for cp continued monitoring. 03/14 19:15 Order name: IV Saline Lock 03/14 19:15 Order name: Labs collected and sent 03/14 19:15 Order name: Urine Dipstick-Ancillary (obtain specimen) 03/14 19:15 Order name: Urine Test (obtain specimen) Administered Medications: No medications were administered Disposition Summary: 03/14/22 21:54 Discharge Ordered Location: Home cp Problem: an ongoing problem cp Symptoms: are unchanged cp Condition: Stable cp Diagnosis - Epigastric pain cp - Other cholelithiasis without obstruction cp Followup: cp - With: Anibal Bennett MD - When: 1 - 2 days - Reason: Recheck today's complaints Discharge Instructions: - Discharge Summary Sheet cp - Abdominal Pain, Adult cp - Cholelithiasis cp Forms: - Medication Reconciliation Form cp - Thank You Letter cp - Antibiotic Education cp - Prescription Opioid Use cp Signatures: Dispatcher [employer] EDAsaf Mon MD MD cha Page, Corey PA PA Lizet Costello, RN RN jh6
[2022-03-16 14:09] VITALS: BP 131/83; TEMP 97.6; O2SAT 98
== END 2022-03-14 22:02 | disposition home or self-care (01) ==
LOC: ER 17:52
DX: K80.80 Other cholelithiasis without obstruction (principal)
CPT/HCPCS: 99281